=== PATIENT | female | born 2000 | race Caucasian/White ===

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

== ENCOUNTER 2019-02-23 17:00 | Emergency (ER) | payer BC ==
[2019-02-23 17:13] VITALS: O2SAT 99
--- NOTE | 2019-02-23 17:27 | ERPHSYRPT ---
- History of Present Illness Time Seen by Provider: 02/23/19 17:27 Source: patient, family Patient Subjective Stated Complaint: Pt states "I have had this problem on and off for 3 years. I have went to the clinic and they have treated me for UTI, after awhile, they sent me to a urologist and he said it was not UTI, I needed checked for STD, I got tested and that came back negative. I am still having the same symptoms." Triage Nursing Assessment: Pt presented alert and oriented X 3, skin pwd Pt ambulates with an upright steady gait, able to speak in clear full sentences. Physician History: 18 y/o white female presents with intermittent dysuria, urinary hesitancy and bilat flank pain for 3 years. pt states she has primary urinary hesitancy today. pt has been seen by a urologist in the past. no work up has been done. pt does not have a pcp. pt has been tested for stds and they have been negative. pt denies vaginal discharge. Timing/Duration: intermittent Activites at Onset: none Severity of Pain-Max: none Severity of Pain-Current: none Prior abdominal problems: none Sexual intercourse history: non-contributory Associated Symptoms: dysuria, other (urinary hesitancy) Allergies/Adverse Reactions: No Known Drug Allergies Allergy (Verified 01/03/18 19:07) Home Medications: Venlafaxine HCl [Effexor Xr] 75 mg PO HS 02/23/19 [History] Hx Tetanus, Diphtheria Vaccination/Date Given: No Hx Influenza Vaccination/Date Given: No Hx Pneumococcal Vaccination/Date Given: No - Review of Systems Constitutional: No Symptoms Eyes: No Symptoms Ears, Nose, & Throat: No Symptoms Respiratory: No Symptoms Cardiac: No Symptoms Abdominal/Gastrointestinal: No Symptoms Genitourinary Symptoms: Dysuria, Hesitancy, Flank Pain Musculoskeletal: No Symptoms Skin: No Symptoms Neurological: No Symptoms Psychological: No Symptoms Endocrine: No Symptoms Hematologic/Lymphatic: No Symptoms Immunological/Allergic: No Symptoms All Other Systems: Reviewed and Negative - Past Medical History Pertinent Past Medical History: No Neurological History: No Pertinent History ENT History: No Pertinent History Cardiac History: No Pertinent History Respiratory History: No Pertinent History Endocrine Medical History: No Pertinent History Musculoskeletal History: No Pertinent History, Other GI Medical History: No Pertinent History History: No Pertinent History Other Medical History: behavioral - Past Surgical History Past Surgical History: No Neuro Surgical History: No Pertinent History Cardiac: No Pertinent History Respiratory: No Pertinent History Gastrointestinal: No Pertinent History Genitourinary: No Pertinent History Musculoskeletal: No Pertinent History Female Surgical History: No Pertinent History - Social History Smoking Status: Former smoker Exposure to second hand smoke: Yes Alcohol Use: None Drug Use: none Patient Lives Alone: No Significant Family History: other - Female History Hx Last Menstrual Period: 02/23/2019 Hx Now: No - Nursing Vital Signs Nursing Vital Signs: Initial Vital Signs Temperature 99.4 F 02/23/19 17:08 Pulse Rate 83 02/23/19 17:08 Respiratory Rate 18 02/23/19 17:08 Blood Pressure 152/89 02/23/19 17:08 O2 Sat by Pulse Oximetry 99 02/23/19 17:08 Pain Scale Pain Intensity 0 - Physical Exam General Appearance: no apparent distress, alert, anxiety Eye Exam: PERRL/EOMI, eyes nml inspection Ears, Nose, Throat Exam: normal ENT inspection, moist mucous membranes Neck Exam: normal inspection, non-tender, supple, full range of motion Respiratory Exam: airway intact, No chest tenderness, No respiratory distress Gastrointestinal/Abdomen Exam: soft, normal bowel sounds, No tenderness Pelvic Exam: not done Rectal Exam: not done Back Exam: normal inspection, normal range of motion, No CVA tenderness, No vertebral tenderness Extremity Exam: normal inspection, normal range of motion, pelvis stable Neurologic Exam: alert, oriented x 3, cooperative, time clerk II-XII nml as tested Skin Exam: normal color, warm, dry Lymphatic Exam: No adenopathy SpO2 Interpretation: normal SpO2: 99 O2 Delivery: Room Air Ordered Tests: Active Orders 24 hr Category Date Time Status HCG,QUALITATIVE URINE Stat Lab 02/23/19 17:45 Completed UA W/RFX UR CULTURE Stat Lab 02/23/19 17:45 Completed Lab/Rad Data: Laboratory Results 02/23/19 02/23/19 Range/Units 17:45 17:45 Urine Color YELLOW (YELLOW) Urine Appearance SLIGHTLY CLOUDY (CLEAR) Urine pH 6.0 (5-6) Ur Specific [place] 1.009 (1.005-1.025) Urine Protein NEGATIVE (Negative) Urine Ketones SMALL (NEGATIVE) Urine Blood MODERATE (0-5) Nils/ul Urine Nitrite NEGATIVE (NEGATIVE) Urine Bilirubin NEGATIVE (NEGATIVE) Urine Urobilinogen NEGATIVE (0-1) mg/dL Ur Leukocyte Esterase NEGATIVE (NEGATIVE) Urine WBC (Auto) 3-5 (0-5) /HPF Urine RBC (Auto) NONE (0-2) /HPF U Epithel Cells (Auto) FEW (FEW) /HPF Urine Bacteria (Auto) NONE (NEGATIVE) /HPF Urine Mucus (Auto) SLIGHT (NEGATIVE) /HPF Urine Culture Reflexed NO (NO) Urine Glucose NEGATIVE (NEGATIVE) mg/dL Urine HCG, Qual NEGATIVE (Negative) - Progress Progress: re-examined, unchanged Air Movement: good Blood Culture(s) Obtained: No Antibiotics given: No Counseled pt/family regarding: lab results, diagnosis, need for follow-up - Departure Departure Disposition: Home Clinical Impression: Urinary tract infection symptoms Condition: Stable Critical Care Time: No Referrals: DOCTOR,NO FAMILY [Primary Care Provider] - Additional Instructions: drink plenty of fluids. use tylenol or ibuprofen for pain. follow up with primary doctor, urologist and armed security professional for further management
[2019-02-23 18:05] LABS: Appearance SLIGHTLY CLOUDY (CLEAR); Bilirubin NEGATIVE (NEGATIVE); Blood MODERATE Ery/ul (0-5); Epithelial Cells FEW /HPF (FEW); Glucose NEGATIVE (NEGATIVE); Ketones SMALL (NEGATIVE); Leukocyte Esterase NEGATIVE (NEGATIVE); Mucus SLIGHT /HPF (NEGATIVE); Nitrite NEGATIVE (NEGATIVE); Protein,Urine Dip NEGATIVE (Negative); Specific Gravity 1.009 (1.005-1.025); Urobilinogen NEGATIVE mg/dL (0-1)
[2019-02-23 18:33] VITALS: BP 105/67; PULSE 85
== END 2019-02-23 18:46 | disposition home or self-care (01) ==
LOC: ED 17:00
DX: N39.0 Urinary tract infection, site not specified (principal)
CPT/HCPCS: 81001; 84703; 99283

== ENCOUNTER 2019-02-28 13:07 | Emergency (ER) | payer BC ==
[2019-02-28] MEDS ORDERED: MOTRIN 600 MG PO ONE (13:21)
[2019-02-28] MEDS ORDERED: NORCO 5/325 MG PO ONE (13:22)
--- NOTE | 2019-02-28 13:25 | ERPHSYRPT ---
- History of Present Illness Time Seen by Provider: 02/28/19 13:15 Source: patient Exam Limitations: no limitations Physician History: Patient has right hand pain after punching a window 15 minutes prior to coming into the emergency department. Occurred: just prior to arrival Method of Injury: direct blow Quality: constant Severity of Pain-Max: severe Severity of Pain-Current: mild Extremities Pain Location: hand: right Modifying Factors: Improves With: immobilization (helps relieve pain), movement (makes pain worse) Associated Symptoms: No back pain, No chest discomfort, No chest pain, No dyspnea, No fever, No jaw pain, No neck pain, No sweating, No short of breath, No vomiting Allergies/Adverse Reactions: No Known Drug Allergies Allergy (Verified 02/28/19 13:31) Home Medications: Venlafaxine HCl [Effexor Xr] 75 mg PO HS 02/23/19 [History] Medroxyprogesterone Acetate [Depo-Subq Provera 104] 104 mg SQ UD 02/28/19 [ History] Hx Tetanus, Diphtheria Vaccination/Date Given: No Hx Influenza Vaccination/Date Given: No Hx Pneumococcal Vaccination/Date Given: No - Review of Systems Constitutional: No Fever, No Chills Eyes: No Symptoms, No Eye Pain, No Photophobia, No Double Vision Ears, Nose, & Throat: No Symptoms, No Ear Pain, No Nose Congestion, No Epistaxis , No Mouth Swelling, No Loose Teeth Respiratory: No Cough, No Dyspnea Cardiac: No Chest Pain, No Edema, No Syncope Abdominal/Gastrointestinal: No Abdominal Pain, No Nausea, No Vomiting, No Diarrhea Genitourinary Symptoms: No Dysuria Musculoskeletal: No Back Pain, No Neck Pain Skin: No Rash Neurological: No Dizziness, No Focal Weakness, No Sensory Changes Psychological: No Symptoms Endocrine: No Symptoms Hematologic/Lymphatic: No Easy Bleeding, No Easy Bruising All Other Systems: Reviewed and Negative - Past Medical History Pertinent Past Medical History: No Neurological History: No Pertinent History ENT History: No Pertinent History Cardiac History: No Pertinent History Respiratory History: No Pertinent History Endocrine Medical History: No Pertinent History Musculoskeletal History: No Pertinent History, Other GI Medical History: No Pertinent History History: No Pertinent History Other Medical History: behavioral - Past Surgical History Past Surgical History: No Neuro Surgical History: No Pertinent History Cardiac: No Pertinent History Respiratory: No Pertinent History Gastrointestinal: No Pertinent History Genitourinary: No Pertinent History Musculoskeletal: No Pertinent History Female Surgical History: No Pertinent History - Social History Smoking Status: Former smoker Exposure to second hand smoke: Yes Alcohol Use: None Drug Use: none Patient Lives Alone: No Significant Family History: other - Female History Hx Now: No - Nursing Vital Signs Nursing Vital Signs: Initial Vital Signs Temperature 99.5 F 02/28/19 13:16 Pulse Rate 82 02/28/19 13:16 Respiratory Rate 18 02/28/19 13:16 Blood Pressure 138/95 02/28/19 13:16 O2 Sat by Pulse Oximetry 100 02/28/19 13:16 Pain Scale Pain Intensity 10 - Physical Exam General Appearance: alert Eyes, Ears, Nose, Throat Exam: moist mucous membranes Neck Exam: normal inspection, non-tender, supple Cardiovascular/Respiratory Exam: chest non-tender, normal breath sounds, regular rate/rhythm, no respiratory distress Abdominal Exam: non-tender, No guarding Back Exam: normal inspection, No vertebral tenderness Shoulder Exam: normal inspection, non-tender, no evidence of injury, normal ROM Elbow/Forearm Exam: normal inspection, non-tender, no evidence of injury, normal ROM Wrist Exam: normal inspection, non-tender, no evidence of injury, normal ROM, No asymmetry, No bone tenderness, No deformity, No limited ROM Hand Exam: bone tenderness (right fifth distal metacarpal), deformity, limited ROM (fifth metacarpal) Neuro/Tendon Exam: normal sensation, normal motor functions, no evidence tendon injury Mental Status Exam: alert, oriented x 3, cooperative Skin Exam: normal color, warm, dry, No abrasion, No laceration SpO2 Interpretation: normal O2 Delivery: Room Air Procedures - Splinting Location of Splint: Right, Hand Type of Splint: Other (Orthoglass ulnar gutter splint) Splint Applied By: ED Nurse (and ED Physician) Pre-Proc Neuro Vasc Exam: normal Post-Proc Neuro Vasc Exam: neurovascular intact - Course Nursing assessment & vital signs reviewed: Yes - Radiology Exams Right Hand X-ray Interpretation: Interpreted by me, Reviewed by me, Other (right fifth metacarpal neck fracture with angulation) Ordered Tests: Active Orders 24 hr Category Date Time Status Splint STAT Care 02/28/19 13:38 Active HAND (MINIMUM 3 VIEWS) Stat Exams 02/28/19 13:18 Taken Medication Summary Discontinued Medications Generic Name Dose Route Start Last Admin Trade Name Freq PRN Reason Stop Dose Admin Hydrocodone Bitart/Acetaminophen 1 tab 02/28/19 13:22 02/28/19 13:35 Vona 5/325 Mg PO 02/28/19 13:23 1 tab STAT ONE Administration Hydrocodone Bitart/Acetaminophen Confirm 02/28/19 13:34 Vona 5/325 Mg Administered 02/28/19 13:35 Dose 1 tab .ROUTE .STK-MED ONE Ibuprofen 600 mg 02/28/19 13:21 02/28/19 13:35 Motrin 600 Mg PO 02/28/19 13:22 600 mg STAT ONE Administration Ibuprofen Confirm 02/28/19 13:33 Motrin 600 Mg Administered 02/28/19 13:34 Dose 600 mg .ROUTE .STK-MED ONE - Progress Progress: improved Progress Note: 02/28/19 13:56 Pain improving. Patient is neurovascularly intact after placement of the right ulnar gutter splint. Counseled pt/family regarding: diagnosis, need for follow-up, rad results - Departure Departure Disposition: Home Clinical Impression: Elevated blood pressure reading without diagnosis of hypertension Displaced fracture of neck of right fifth metacarpal bone Qualifiers: Encounter type: initial encounter Fracture type: closed Qualified Code(s): S62.336A - Displaced fracture of neck of fifth metacarpal bone, right hand, initial encounter for closed fracture Condition: Good Critical Care Time: No Referrals: DOCTOR,NO FAMILY [Primary Care Provider] - ALEX MARC MD [ACTIVE STAFF] - 02/28/19 ([facility] in [place], [place] on 03/01/2019 at 08:00 am.) Instructions: Boxer's Fracture (DC), DASH Diet Additional Instructions: Follow up in the walk-in clinic on 03/01/2019 at 8am for further evaluation and treatment of your hand fracture. It is important you be there at 8 am to be re-checked on 03/01/2019. Forms: Work/School Release Form Prescriptions: Etodolac 400 mg [Lodine 400 mg] 400 mg PO BID PRN PRN #20 tablet PRN Reason: Pain
[2019-02-28 13:30] VITALS: BP 138/95; PULSE 82; O2SAT 100
[2019-02-28] MEDS ORDERED: MOTRIN 600 MG ONE (13:33)
[2019-02-28] MEDS ORDERED: NORCO 5/325 MG ONE (13:34)
--- NOTE | 2019-02-28 14:21 | XRAY ---
Exam: 3 view right hand series from 02/28/2019. Comparison: None. Indication: 18-year-old female with right hand pain after punched window. Findings: AP, oblique, and lateral radiographs of the right hand were obtained. I note an impacted, mildly overriding, transverse fracture through the distal right fifth metacarpal neck with moderate palmar angulation. There is about 2 mm palmar displacement of the distal right fifth metacarpal head with respect to the right fifth metacarpal shaft on the lateral radiograph. Some adjacent soft tissue swelling is seen. The right fifth MCP joint appears intact. I see no other acute fracture or dislocation within the right hand. The joint spaces appear unremarkable. No definite radiopaque soft tissue foreign body is seen. Impression: 1. Impacted, mildly overriding, transverse fracture of the distal right fifth metacarpal neck, as described above. Some adjacent soft tissue swelling is seen.
== END 2019-02-28 14:28 | disposition home or self-care (01) ==
LOC: ED 13:07
DX: R03.0 Elevated blood-pressure reading, without diagnosis of hypertension (principal); S62.336A Displaced fracture of neck of fifth metacarpal bone, right hand, initial encounter for closed fracture; W22.09XA Striking against other stationary object, initial encounter
CPT/HCPCS: 29126; 73130; 99284; A9270-GY

== ENCOUNTER 2023-06-23 04:59 | Emergency (ER) | payer BC ==
[2023-06-23 05:47] VITALS: BP 126/82; PULSE 70; RESP 16; TEMP 98.1; O2SAT 100
[2023-06-23] MEDS ORDERED: TORAdol 30 mg Injection IV ONE (05:57)
[2023-06-23] MEDS ORDERED: Sodium Chloride 0.9% 1000 ML 1,000 ML IV SCH (06:00)
--- NOTE | 2023-06-23 06:01 | ERPHSYRPT ---
- History of Present Illness Time Seen by Provider: 06/23/23 06:00 Historian: patient Exam Limitations: no limitations Patient Subjective Stated Complaint: pt states she has been having mid abd pain and lower back pain since 2199 with nasuea and vomiting. Triage Nursing Assessment: pt alert and oriented, answers questions approp. pt ambulates into room with steady gait noted. respirations nonlabored. skin warm and dry. abd soft and nontender to light palpation. bowel sounds present x4. Physician History: Patient is a 22-year-old female presents to our ED for evaluation of abdominal pain nausea vomiting and low back pain that started at 10 PM last night. Symptoms have been constant. Symptoms are moderate in intensity. No specific worsening or improving factors. No trauma no fever. No diarrhea. No rash. Sy mptoms are constant. Symptoms are moderate in intensity. No specific worsening or improving factors. Patient voices no other complaints or concerns at this time. Portions of this note were created with voice recognition technology. There may be grammatical, spelling, punctuation or sound alike errors Timing/Duration: yesterday Activities at Onset: none Quality: aching Abdominal Pain Onset Location: generalized abdomen Pain Radiation: no radiation Severity of Pain-Max: moderate Severity of Pain-Current: mild Modifying Factors: Improves With: nothing Associated Symptoms: nausea, vomiting Allergies/Adverse Reactions: No Known Drug Allergies Allergy (Verified 06/23/23 05:47) Home Medications: No Reportable Medications [No Reported Medications] 06/23/23 [History] Hx Tetanus, Diphtheria Vaccination/Date Given: No Hx Influenza Vaccination/Date Given: No Hx Pneumococcal Vaccination/Date Given: No Immunizations Up to Date: No Travel Risk - International Travel Have you traveled outside of the country in past 3 weeks: No - Coronavirus Screening Are you exhibiting any of the following symptoms?: No Close contact with a COVID-19 positive Pt in past 14-21 Days: No - Vaccine Status Have you recieved a Covid-19 vaccination: No - Review of Systems Constitutional: No Symptoms, No Fever, No Chills Eyes: No Symptoms Ears, Nose, & Throat: No Symptoms Respiratory: No Symptoms, No Cough, No Dyspnea Cardiac: No Symptoms, No Chest Pain, No Edema, No Syncope Abdominal/Gastrointestinal: No Symptoms, No Abdominal Pain, No Nausea, No Vomiting, No Diarrhea Genitourinary Symptoms: No Symptoms, No Dysuria Musculoskeletal: No Symptoms, No Back Pain, No Neck Pain Skin: No Symptoms, No Rash Neurological: No Symptoms, No Dizziness, No Focal Weakness, No Sensory Changes Psychological: No Symptoms Endocrine: No Symptoms Hematologic/Lymphatic: No Symptoms Immunological/Allergic: No Symptoms All Other Systems: Reviewed and Negative - Past Medical History Pertinent Past Medical History: No Neurological History: No Pertinent History ENT History: No Pertinent History Cardiac History: No Pertinent History Respiratory History: No Pertinent History Endocrine Medical History: No Pertinent History Musculoskeletal History: No Pertinent History, Other GI Medical History: No Pertinent History History: No Pertinent History Psycho-Social History: Anxiety, Other Other Medical History: behavioral - Past Surgical History Past Surgical History: No Neuro Surgical History: No Pertinent History Cardiac: No Pertinent History Respiratory: No Pertinent History Gastrointestinal: No Pertinent History Genitourinary: No Pertinent History Musculoskeletal: No Pertinent History Female Surgical History: No Pertinent History - Social History Smoking Status: Never smoker Exposure to second hand smoke: No Alcohol Use: None Drug Use: none Patient Lives Alone: No Significant Family History: other - Female History Hx Last Menstrual Period: 2 weeks Hx Now: No - Nursing Vital Signs Nursing Vital Signs: Initial Vital Signs Temperature 98.1 F 06/23/23 05:39 Pulse Rate 70 06/23/23 05:39 Respiratory Rate 16 06/23/23 05:39 Blood Pressure 126/82 06/23/23 05:39 O2 Sat by Pulse Oximetry 100 06/23/23 05:39 Pain Scale Pain Intensity 5 - Physical Exam General Appearance: no apparent distress, alert Eye Exam: PERRL/EOMI, eyes nml inspection Ears, Nose, Throat Exam: normal ENT inspection, pharynx normal, moist mucous membranes Neck Exam: normal inspection, non-tender, supple, full range of motion Respiratory Exam: normal breath sounds, lungs clear, No respiratory distress Cardiovascular Exam: regular rate/rhythm, normal heart sounds Gastrointestinal/Abdomen Exam: soft, No tenderness, No mass Back Exam: normal inspection, normal range of motion, No CVA tenderness, No vertebral tenderness Extremity Exam: normal inspection, normal range of motion, pelvis stable Neurologic Exam: alert, oriented x 3, cooperative, normal mood/affect, nml cerebellar function, sensation nml, No motor deficits Skin Exam: normal color, warm, dry Lymphatic Exam: No adenopathy SpO2 Interpretation: normal SpO2: 100 - Course Nursing assessment & vital signs reviewed: Yes Ordered Tests: Active Orders 24 hr Category Date Time Status AMA [Release AMA] OM.[email or web address] Care 06/23/23 06:23 Completed AMA [Release AMA] OM.[email or web address] Care 06/23/23 07:05 Active IV Insertion STAT Care 06/23/23 05:57 Completed Medication Summary Discontinued Medications Generic Name Dose Route Start Last Admin Trade Name Violeta PRN Reason Stop Dose Admin Sodium Chloride 1,000 mls @ 100 mls/hr 06/23/23 06:00 Sodium Chloride 0.9% 1000 Ml IV 07/23/23 05:59 .Q10H LAKHWINDER Ketorolac Tromethamine 30 mg 06/23/23 05:57 Ketorolac Tromethamine 30 Mg/Ml Inj IV 06/23/23 05:58 STAT ONE - Progress Progress Note: Patient decided to leave AGAINST MEDICAL ADVICE. She stated her symptoms resolved. Patient left prior to discussing management with Dr. Quinonez. Patient is of sound mind. Patient is appropriate to make informed and independent medical decisions. Patient understands that leaving AGAINST MEDICAL ADVICE can result in delayed diagnosis, increased risk of morbidity, mortality, short and long-term disability including . In spite of these risks, patient has decided to leave AGAINST MEDICAL ADVICE. Patient understands that she may return to our ED at any point if she reconsiders. Patient agrees to follow-up with his or her primary care doctor within 48 hours for reevaluation. Patient voices no other complaints or concerns at this time. We will release patient AGAINST MEDICAL ADVICE per their request. 22-year-old female presents to our ED for evaluation of abdominal pain or back pain. Patient also experienced nausea and vomiting. Patient states her symptoms resolved upon arrival to our ED. Patient feels workup is not necessary. Patient left our ED for consultation with Dr. Quinonez. Complexity problem addressed is moderate acute complicated No critical care time Complexity of data reviewed and analyzed is none. Patient left AMA before testing could be administered Risk of complication and a risk morbidity/mortality of patient management is low. Patient left AGAINST MEDICAL ADVICE Patient absconded 06/23/23 07:06 - Departure Departure Disposition: AMA Clinical Impression: Abdominal pain, Back pain, Nausea and vomiting Condition: Stable Critical Care Time: No Referrals: MARYJO ANGEL [Primary Care Provider] - Follow up/PCP as directed
== END 2023-06-23 06:26 | disposition left against medical advice (07) ==
LOC: ED 04:59
DX: R11.2 Nausea with vomiting, unspecified (principal); R10.9 Unspecified abdominal pain; M54.50 Low back pain, unspecified; Z28.310 Unvaccinated for COVID-19
CPT/HCPCS: 99281